=== PATIENT | female | born 1960 | race Caucasian/White ===

== ENCOUNTER 2017-08-01 13:09 | Emergency (ER) | payer SELFPAY ==
[~2017-08-01] VITALS: Ht 152.4 cm; Wt 44.0 kg
[~2017-08-01 13:09] MED LIST: CYCL5TAB PO; OXYC-360 PO; Z.0.NO CURRENT MEDS
[2017-08-01 13:10] VITALS: BP 135/88; PULSE 78; RESP 12; TEMP 98.2; O2SAT 98
[2017-08-01] MEDS ORDERED: IBUPROFEN 600 MG TAB PO ONE (14:45)
--- NOTE | 2017-08-01 15:14 | RADRPT ---
EXAM DATE/TIME: 08/01/2017 14:50 [facility] COMPARISON: No previous studies available for comparison. INDICATIONS : Left wrist pain after falling on her hand and wrist. MEDICAL HISTORY : None. SURGICAL HISTORY : Left wrist. ENCOUNTER: Initial ACUITY: 1 day PAIN SCORE: 10/10 LOCATION: Left wrist FINDINGS: Three view examination of the left wrist demonstrates an oblique fracture of the third metacarpal sha ft. 2 fibrous osseous anchors overlie the wrist from previous surgery.. The carpal bones are in norm al alignment. The joint spaces are maintained. Bony mineralization is normal. CONCLUSION: Oblique fracture of the third metacarpal shaft.. Phil Enamorado MD on August 01, 2017 at 15:11 Board Certified Radiologist. This report was verified electronically.
--- NOTE | 2017-08-01 15:20 | RADRPT ---
EXAM DATE/TIME: 08/01/2017 14:55 [facility] COMPARISON: No previous studies available for comparison. INDICATIONS : Left hand pain after falling on her hand and wrist. MEDICAL HISTORY : None. SURGICAL HISTORY : None. ENCOUNTER: Initial ACUITY: 1 day PAIN SCORE: 10/10 LOCATION: Left hand FINDINGS: 3 views of the left hand reveal an acute fracture involving the third metacarpal. This is obliquely o riented relative to the long axis of the bone. No significant angulation or distraction. Soft tissue swelling is mild. Anchoring devices overlie the carpus along its dorsal aspect. CONCLUSION: Acute third metacarpal fracture. Los Servin Jr., MD on August 01, 2017 at 15:12 Board Certified Radiologist. This report was verified electronically.
--- NOTE | 2017-08-01 15:20 | PD ---
Physical Exam Date Seen by Provider: Aug 01, 2017 Time Seen by Provider: 15:15 Narrative This patient presents with a left hand injury which occurred several days prior to presentation. She states that she tripped over an area rug and fell onto her left hand. Data Data Last Documented VS Vital Signs Date Time Temp Pulse Resp B/P (MAP) Pulse Ox O2 Delivery O2 Flow Rate FiO2 08/01/17 13:10 98.2 78 12 135/88 (104) 98 Orders Orders Wrist, Complete ([id number]) (08/01/17 ) Hand, Complete ([id number]) (08/01/17 14:43) Ice/Cold Pack (08/01/17 14:43) Ibuprofen (Motrin) (08/01/17 14:45) MDM Supervised Visit with [facility]: Yes Narrative Course I, Dr. Zamora, have reviewed the advance practice practitioner's documentation and am in agreement, met with the patient face to face, made the diagnosis, and the medical decision making was done by me. *My assessment and Findings: She has some significant bruising in the palm of her left hand. She has tenderness in the midportion of the left hand. Her fingers line up normally when she makes a fist. Please see Edie Hart NP's note for results of laboratory and radiographic evaluation, ED course, final diagnosis and disposition Eveline Zamora MD Aug 01, 2017 15:20
--- NOTE | 2017-08-01 15:24 | PD ---
HPI . Left wrist/hand injury Chief Complaint: Musculoskeletal Complaint Time Seen by Provider: 14:20 Travel History International Travel<30 days: No Contact w/Intl Traveler<30days: No Traveled to known affect area: No History of Present Illness HPI 57 year old female present to the emergency department for evaluation of left wrist and hand pain after tripping over a throw rug in her kitchen and falling on Friday. Patient denies hitting her head or losing consciousness. Patient deny any other injuries during this fall. Patient had surgery to repair a facture on the left wrist approximately 20 years ago. Patient is able to move her left hand and the left hand remains neurovascularly intact. Patient has no major medical history and doesn't take any daily medications. PFSH Past Medical History Arthritis: Yes (NECK) Past Surgical History Cholecystectomy: Yes Other Surgery: Yes (BREAST AUGMENTATION) Social History Alcohol Use: Yes (2 DRINKS DAILY) Tobacco Use: No Substance Use: No Allergies-Medications (Allergen,Severity, Reaction): Coded Allergies: Penicillins (Verified Allergy, Severe, Rash, 08/01/17) amoxicillin (Verified Allergy, Severe, Rash, 08/01/17) Reported Meds & Prescriptions Reported Meds & Active Scripts Active No Active Prescriptions or Reported Medications Review of Systems Except as stated in HPI: all other systems reviewed are Neg Physical Exam Narrative GENERAL: Well-nourished, well-developed 57-year-old female patient in no acute distress. Nontoxic appearing. SKIN: Focused skin assessment warm/dry. HEAD: Normocephalic. Atraumatic. EYES: No scleral icterus. No injection or drainage. NECK: Supple, trachea midline. No JVD or lymphadenopathy. CARDIOVASCULAR: Regular rate and rhythm without murmurs, gallops, or rubs. RESPIRATORY: Breath sounds equal bilaterally. No accessory muscle use. GASTROINTESTINAL: Abdomen soft, non-tender, nondistended. MUSCULOSKELETAL: Ecchymosis and mild edema noted to the dorsal aspect of the left hand. No cyanosis, or erythema. BACK: Nontender without obvious deformity. No CVA tenderness. Data Data Last Documented VS Vital Signs Date Time Temp Pulse Resp B/P (MAP) Pulse Ox O2 Delivery O2 Flow Rate FiO2 08/01/17 13:10 98.2 78 12 135/88 (104) 98 Orders Orders Wrist, Complete ([id number]) (08/01/17 ) Hand, Complete ([id number]) (08/01/17 14:43) Ice/Cold Pack (08/01/17 14:43) Ibuprofen (Motrin) (08/01/17 14:45) Splint Or Brace Apply/Monitor (08/01/17 15:18) Mandatory Outpatient Referral (08/01/17 15:25) Ed Discharge Order (08/01/17 15:25) MDM Medical Decision Making Medical Screen Exam Complete: Yes Emergency Medical Condition: Yes Differential Diagnosis Differential diagnoses include but not limited to fracture, sprain, contusion Narrative Course 57-year-old female presents emergency department for evaluation of left hand/ wrist pain after tripping and falling last Friday in her kitchen. The fall was a mechanical fall. She states the pain has been persistent since the fall. X-ray of the left hand/wrist ordered and pending. Ice applied to the left hand. Ibuprofen ordered for pain management. Left hand x-ray shows third metacarpal fracture. Volar splint applied and patient given a mandatory referral due to lack of insurance to follow up with hand surgeon, Dr Bonner. Patient discharged home with rice therapy instructions and told that the hospital will contact her for the follow-up with the hand surgeon. Diagnosis Primary Impression: Hand fracture, left Qualified Codes: S62.92XA - Unspecified fracture of left wrist and hand, initial encounter for closed fracture Referrals: Allen Bonner MD 1 week Primary Care Physician Patient Instructions: General Instructions, Hand Fracture (ED) Additional Instructions: Please return to emergency department if your symptoms return or worsen. Follow up with your primary care provider. May take [id number] ibuprofen or Tylenol as a for pain or swelling. Rice therapy to left hand, rest, ice, splint and elevate with resting. Scripts No Active Prescriptions or Reported Meds Disposition: DISCHARGE HOME Condition: Stable TannerEdie conway Judy SHEPPARD Aug 01, 2017 15:24
== END 2017-08-01 16:30 | disposition home or self-care (01) ==
LOC: NEPD 13:09
DX: S62.323A Displaced fracture of shaft of third metacarpal bone, left hand, initial encounter for closed fracture (principal); M47.9 Spondylosis, unspecified; W01.0XXA Fall on same level from slipping, tripping and stumbling without subsequent striking against object, initial encounter; Y92.000 Kitchen of unspecified non-institutional (private) residence as the place of occurrence of the external cause; Z88.0 Allergy status to penicillin
CPT/HCPCS: 29125; 73110; 73130